=== PATIENT | female | born 1930 | race Caucasian/White ===

== ENCOUNTER 2016-07-23 06:25 | Day surgery (SDC) | payer MEDICARE ==
[~2016-07-23] VITALS: Ht 167.6 cm; Wt 76.5 kg
[~2016-07-23 06:25] MED LIST: CHOL200025 PO; HYDR-656 PO; LOSA50TA37 PO; LOVA40TA PO; OMEP40CA36 PO; SERT100T9 PO; VITA150T PO; ZINC50TA4 PO; fish oil
[2016-07-23] MEDS ORDERED: fentaNYL-PF 50 mCg/mL 2 mL Inj ONE (06:26)
[2016-07-23] MEDS: Lactated Ringer's 1,000 ML IV SCH ×2 (06:38→08:21)
[2016-07-23 06:49] VITALS: BP 142/73; PULSE 70; RESP 20; O2SAT 96
--- NOTE | 2016-07-23 07:51 | PCM.HPANE ---
Patient Data Surgeon Admitting Provider: Attending Provider:Spencer Boland DO Primary Care Physician:Emi Reynaga Other Provider:Hermelindo Durán Anesthesia Reason for Visit Right Middle Finger Mass Ht/WT & BMI Height (Feet): 5 Height (Inches): 6 Weight (Kilograms): 76.5 Body Mass Index 27.00 Allergies Coded Allergies: Penicillins (Verified Allergy, Severe, swell up, rash, 03/02/14) RASH Sulfa (Sulfonamide Antibiotics) (Verified Allergy, Severe, swell up, rash , 03/02/14) Past Anesthesia History Anesthesia History: Denies:: Abnormal Airway, Anesthesia Reactions, Difficult Intubation, Fam Anesthesia Reaction, Fam Malignant Hypertherm, Malignant Hyperthermia Diabetes History Hx Diabetes?: No MRSA MRSA: No Medications Blood Thinner: Aspirin Hypertension Medication: Yes Home Meds Incl Beta Estevan: No Reported Medications Zinc Gluconate (Zinc)50 Mg [id number] Mg PO DAILY 07/21/16 Cholecalciferol (Vitamin D3) (Vitamin D3)2,000 Unit Tablet2,000 Unit PO DAILY 07/21/16 Vitamin B Complex & Vit C No.4 (Super B Complex)150 Mg Buvina150 Mg PO DAILY 07/21/16 Sertraline HCl (Sertraline)100 Mg Wpcojf728 Mg PO DAILY 30 Days Ref 0 07/21/16 Omeprazole 40 Mg Capsule.dr40 Mg PO DAILY Ref 0 07/21/16 Lovastatin 40 Mg Aiuyzb85 Mg PO HS #30 TABLET Ref 0 07/21/16 Losartan Potassium 50 Mg Vyeokc62 Mg PO DAILY 07/21/16 hydrOXYzine Hcl (HydrOXYzine Hcl)25 Mg Dcgvzd21 Mg PO HS PRN Insomnia 07/21/16 [fish oil] No Conflict CheckUnknown Dose DAILY 07/21/16 Discontinued Reported Medications [prednisone] No Conflict CheckUnknown Dose DAILY 07/21/16 Triamcinolone Acet (Triamcinolone Acetonide Cream)4 Applic/Gm Cr1 Applic TOP BID #15 GM Ref 0 03/01/14 Trazodone 50 Mg Mhvhia88-21 Mg PO HS PRN For Sleep 30 Days Ref 0 03/01/14 Ranitidine HCl (Ranitidine)150 Mg Gijclg743 Mg PO BID 30 Days Ref 0 03/01/14 Lovastatin 40 Mg Frocxn38 Mg PO HS #30 TABLET Ref 0 03/01/14 Losartan Potassium 50 Mg Fqsark62 Mg PO 03/01/14 Citalopram 40 Mg Xntiim08 Mg PO DAILY 30 Days Ref 0 03/01/14 Aspirin (Aspir 81)81 Mg Tablet.dr81 Mg PO DAILY Ref 0 03/01/14 History HEENT History: Positive for:: Cataracts (bilateral ) Denies:: Abnormal Airway Difficult Intubation Dysphagia Glaucoma Hearing Problem Hx of Heart Problems?: No Cardiovascular History: Positive for:: Heart Murmur (past hx of- ) Hypertension Denies:: AICD Atrial Fibrillation Chest Pain Irregular Heartbeat Pacemaker Valvular Heart Disease Hx of Respiratory Problem?: No Respiratory History: Denies:: Asthma COPD Cough Emphysema Hemoptysis Oxygen Administration Pneumonia Tuberculosis Use of C-PAP Machine Use of Inhalers / NEBS Hx Neurologic Problems?: Yes Neurological History: Positive for:: Headaches (once month or so) Denies:: CVA Dementia Dizziness Multiple Sclerosis Parkinson's Disease Seizures TIA Hx of GI Problems?: Yes Gastrointestinal History: Positive for:: Gastroesphageal Reflux (on rx) Heartburn Denies:: Cirrhosis Diverticulitis Gall Bladder Disease Gastrointestinal Bleeding Hepatitis Hiatal Hernia Liver Disease Rectal Bleeding Hx of Problems?: Yes Genitourinary History: Denies:: Kidney Stones Other Pertinent History: 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 Skin History: Denies:: History Skin Disorders? Pressure Ulcers Hx Musculoskeletal Problems?: Yes Musculoskeletal History: Positive for:: Musculoskeletal Trauma (right middle finger current admission problem) Osteoarthritis Denies:: Back Injury Fibromyalgia Joint Replacement Rheumatoid Arthritis Systemic Lupus Hx of Psycho/Social Problems?: Yes Psycho Social History: Positive for:: Hx Depression Denies:: Anxiety Hx Surgeries?: Yes (hyst, bladder lift) Hx Any Other Health Problems?: Yes Other History: Denies:: Cancer Thyroid Disease History Blood Transfusions: Positive for:: Accept Blood Products? Denies:: Blood Transfusions Hx Diabetes: No Hx Alcohol Use: YesAlcoholic Drinks Per Day: couple drinks weeklyHx Substance Use: No Smoking Status: Never Smoker Have You Smoked inLast 12 mo: No Stop/Bang S-Snoring: Do You Snore Loudly: No T-Tired: feel tired, fatigued: Yes O-Obsered: Observed not breath: No P-Blood Pressure: treated: Yes B- Body Mass Index > 35 kg/m2: No A- Age over 50: Yes N- Neck Large Circumference: No G- Gender Male: No PILO Total Score: 3 PILO Risk Assessment: Low Risk, <3 Yes Risk Assessment Category Category 1A: Patient has history of documented sleep apnea, and HAS NOT received any narcotic, sedative or anesthesia administration during this stay. Category 1B: Patient has history of documented sleep apnea, and HAS received any narcotic , sedative or anesthesia administration during this stay Category 2: Patient has SUSPECTED Obstructive Sleep Apnea, and HAS received any narcotic , sedative or anesthesia administration during this stay. Category 3: Patient has SUSPECTED Obstructive Sleep Apnea and HAS NOT received narcotic, sedative or anesthesia administration during this stay. Category 4: Outpatient in Procedural Areas with known sleep apnea or who screen positive for High Risk via the STOP/BANG questionnaire. Exam Exam Vital Signs Vital Signs Date Time Temp Pulse Resp B/P Pulse Ox O2 Delivery O2 Flow Rate FiO2 07/23/16 06:49 36 70 20 142/73 96 Room Air General Appearance: Alert, Oriented X3, Cooperative, No Acute Distress HEENT/AIRWAY: MP 1 Lungs: Normal Air Movement Heart: Exam Unremarkable Meds/Labs/Diagnostics Admission Meds Current Medications Lactated Ringer's (Lr) 1,000 ml @ 120 mls/hr Q8H20M IV Last administered on t 06:38; Start 07/23/16 at 05:00; Stop 07/23/16 at 13:19 Plan Impression Patient chart reviewed, patient interviewed and anesthestic plan with risks, benefits, and alternatives discussed, and informed consent obtained. NPO Status: 07/22/16 ASA Physical Status: ASA2 Mod Systemic Disease Anesthetic Plan: MAC Bene/Risks/Altern/Consents: Yes HP Complete Prior to Induction: Yes Jama Nieves MD Jul 23, 2016 07:51
[2016-07-23] MEDS ORDERED: HYDROcodone-APAP 5-325 mg Tablet PO PRN (08:05)
[2016-07-23] MEDS ORDERED: Lidocaine 1%-Epi 1:100,000 20 mL Inj INFILTRATE ONE (08:12)
[2016-07-23] MEDS ORDERED: Lactated Ringer's 1,000 ML IV SCH (08:34)
[2016-07-23] MEDS ORDERED: Lactated Ringer's 500 ML IV PRN (08:34)
[2016-07-23] MEDS ORDERED: fentaNYL-PF 50 mCg/mL 2 mL Inj IVPUSH PRN (08:35)
[2016-07-23] MEDS ORDERED: Dexamethasone 4 mg/mL Inj IVPUSH PRN (08:35)
[2016-07-23] MEDS ORDERED: Phenylephrine 10,000 mCg/mL Inj IVPUSH PRN (08:35)
[2016-07-23] MEDS ORDERED: HYDROmorphone 1 mg/mL Inj IVPUSH PRN (08:35)
[2016-07-23] MEDS ORDERED: EPHEDrine Sulfate 50 mg/mL Inj IVPUSH PRN (08:35)
[2016-07-23] MEDS ORDERED: MetoCLOpramide 5 mg/mL 2 mL Inj IVPUSH PRN (08:35)
[2016-07-23] MEDS ORDERED: Ondansetron 2 mg/mL 2 mL Inj IVPUSH PRN (08:35)
[2016-07-23 09:20] VITALS: BP 116/57; PULSE 62; RESP 18; O2SAT 99
[2016-07-23 09:52] VITALS: BP 124/57; PULSE 76; RESP 18; O2SAT 99
--- NOTE | 2016-07-23 11:53 | PCM.ANEP1 ---
Post Anesthesia Phase 1 PACU Phase 1 Assessment Vital Signs Vital Signs Date Time Temp Pulse Resp B/P Pulse Ox O2 Delivery O2 Flow Rate FiO2 07/23/16 09:52 76 18 124/57 99 Room Air 07/23/16 09:20 36 62 18 116/57 99 Room Air 07/23/16 06:49 36 70 20 142/73 96 Room Air Anesthetic Administered: MAC Level of Alertness: Awake, talking LOVELL's with Equal Strength: Yes Pain: No Nausea or Vomiting: No Oxygen Delivery: Room Air Lungs: Normal Air Movement Jama Nieves MD Jul 23, 2016 11:53
--- NOTE | 2016-07-23 11:53 | PCM.ANEP2 ---
Post Anesthesia Evaluation ASA/CMS Post Anesthesia VS in Patient's Normal Range?: Yes Resp Stable; Airway Patent?: Yes CV Function & Hydration Stable: Yes Mental Status Recovered?: Yes Pain control Satisfactory?: Yes N/V Control Satisfactory?: Yes Jama Nieves MD Jul 23, 2016 11:53
--- NOTE | 2016-07-23 16:53 | OP ---
[address] [address] OPERATIVE REPORT PATIENT: ALFREDO MCMAHON : 1930 MR#: [id number] ADMIT: 07/23/2016 JOB ID: [id number] DATE OF SURGERY: 07/23/2016 PREOPERATIVE DIAGNOSIS(ES): Right middle finger mass. POSTOPERATIVE DIAGNOSIS(ES): Right middle finger protruding osteophyte. PROCEDURE: Excision of right middle finger distal phalanx osteophyte. SURGEON: Spencer Boland D.O. ANESTHESIA: Monitored anesthesia care with local. BRIEF HISTORY: The patient is a pleasant 85-year-old female with significant arthritis to both of her hands. She presented to me with a mass to the base of her right middle finger distal phalanx. It was a hard mass that represented either a soft tissue mass such as fibroma or ganglion or the possibility of an underlying osteophyte due to the amount of arthritic changes she did demonstrate. The mass was painful as every time she bumped it, it would cause a break in the skin. I gave the patient the option to have this excised. She understood the risks include, but are not limited to, neurovascular injury, tendon injury, infection, failure to resolve the patient's preoperative symptoms, recurrent stiffness, persistent pain which may require further intervention. The patient had all questions answered. Consent was signed and placed in the chart. PROCEDURE IN DETAIL: The patient was brought to the operative suite and placed supine on the operating table. Surgical time-out was performed. Everyone in the room was in agreement. After appropriate anesthesia was obtained, a right upper extremity was then prepped and draped in a sterile fashion. The patient's right middle finger at the distal interphalangeal joint was approached with a small Seamus-type incision. Dissection was carried down to the ulnar digital neurovascular bundle. The digital neurovascular bundle was then retracted out of the operative field. The mass was easily identified and represented a very large sharp osteophyte off of the ulnar base of the distal phalanx. The osteophyte was removed with a rongeur and then rasped to a smooth surface to ensure that no remaining sharp edges were present. Copious irrigation was then performed followed by direct closure of skin with 5-0 nylon in simple interrupted fashion. ESTIMATED BLOOD LOSS: Less than 1 cc. COMPLICATIONS: None. DISPOSITION: The patient tolerated the procedure well. Anesthesia was reversed. The patient was transferred to the PACU for recovery. SPECIMENS: Osteophyte off of the right middle finger distal phalanx that was disposed of. POSTOPERATIVE PLAN: The patient will follow up in the office in two weeks. I will remove the patient's sutures at that time and have her start working on range of motion and scar mobilization.
== END 2016-07-23 23:59 | disposition home or self-care (01) ==
LOC: SAS 06:25
PROVIDERS: ATTEND Orthopaedic Surgery
DX: M25.741 Osteophyte, right hand (principal); I10 Essential (primary) hypertension; R51 Headache; K21.9 Gastro-esophageal reflux disease without esophagitis; R12 Heartburn; F32.9 Major depressive disorder, single episode, unspecified; M19.90 Unspecified osteoarthritis, unspecified site; Z79.899 Other long term (current) drug therapy; Z79.82 Long term (current) use of aspirin
CPT/HCPCS: 26115; J2250; J7120